=== PATIENT | male | born 1990 | race Hispanic/Latino ===

== ENCOUNTER 2022-11-29 19:30 | Emergency (ER) | payer OTHER ==
[~2022-11-29] VITALS: Ht 170.2 cm; Wt 86.6 kg
[2022-11-29 20:14] VITALS: BP 146/74
[2022-11-29] MEDS ORDERED: ACYC-138 PO (20:38)
[2022-11-29] MEDS ORDERED: ACYCLOVIR 200 MG CAPSULE ONE (20:42)
[2022-11-29] MEDS ORDERED: IBUPROFEN 600 MG TABLET ONE (20:42)
[2022-11-29] MEDS ORDERED: ACYCLOVIR 800 MG TABLET PO ONE (21:00)
[2022-11-29] MEDS ORDERED: IBUPROFEN 600 MG TABLET PO ONE (21:00)
== END 2022-11-29 20:54 | disposition home or self-care (01) ==
LOC: EDH 19:30
DX: B02.9 Zoster without complications (principal)
CPT/HCPCS: 93005